=== PATIENT | male | born 2000 | race Caucasian/White ===

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

== ENCOUNTER 2023-06-23 12:09 | Emergency (ER) | payer SELFPAY ==
[2023-06-23] MEDS ORDERED: Tetracaine HCl/PF 0.5% 4 ML Bottle EYELF ONE (13:06)
== END 2023-06-23 15:20 | disposition home or self-care (01) ==
LOC: JD.ED 12:09
DX: S05.02XA Injury of conjunctiva and corneal abrasion without foreign body, left eye, initial encounter (principal)
CPT/HCPCS: 99283; J3490